=== PATIENT | male | born 2000 | race Two or more races ===

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

== ENCOUNTER 2018-06-11 12:30 | Outpatient (CLI) | payer BC | END 2018-06-11 23:59 | disposition home or self-care (01) | LOC: WOU 12:30 | PROVIDERS: ATTEND Podiatrist Foot & Ankle Surgery | DX: M79.671 Pain in right foot (principal); Q66.51 Congenital pes planus, right foot | CPT/HCPCS: 99212; Z7610; G0463 ==